=== PATIENT | female | born 1985 | race Caucasian/White ===

== ENCOUNTER 2017-01-03 13:29 | Outpatient (CLI) | payer MEDICAID | END 2017-01-03 13:30 | disposition home or self-care (01) | DX: Z20.2 Contact with and (suspected) exposure to infections with a predominantly sexual mode of transmission (principal) ==

== ENCOUNTER 2017-05-17 14:43 | Emergency (ER) | payer MEDICAID ==
[2017-05-17 14:50] VITALS: BP 108/65
--- NOTE | 2017-05-17 15:37 | ED Physician Documentation ---
History of Present Illness - Stated complaint Stated Complaint: FACE ABRASIONS - Chief complaint Chief Complaint: Heent - Additonal information Additional information: hx from pt 31 y/o f not rash to face otherwise well Review of Systems Constitutional: denies: Fever : denies: Now EGA Skin: reports: Rash PD PAST MEDICAL HISTORY - Past Medical History Respiratory: Asthma Psych: Panic attacks - Past Surgical History Past Surgical History: Yes General: Colonoscopy HEENT: Tonsil/Adenoidectomy - Present Medications Home Medications: Ambulatory Orders Medication Instructions Recorded Confirmed Cephalexin [Keflex] 500 mg PO Q6H #28 capsule 05/17/17 Mupirocin Calcium [Bactroban] 1 applic TP BID #30 cream..g. 05/17/17 - Allergies Allergies/Adverse Reactions: Allergies Allergy/AdvReac Type Severity Reaction Status Date / Time No Known Drug Allergies Allergy Verified 02/20/14 21:51 - Social History Does the pt smoke?: Yes Smoking Status: Former smoker Does the pt drink ETOH?: No Does the pt have substance abuse?: No - Immunizations Immunizations are current?: Yes PD ED PE NORMAL - Vitals Vital signs reviewed: Yes - Cardiac Cardiac: RRR - Respiratory Respiratory: No respiratory distress, Clear bilaterally - Derm Derm: Other (impetigo to face (nose mouth and l cheek) - classic deep red with clear yellow crusting and no surrounding erythema) Results - Vitals Vitals: Vital Signs - 24 hr 05/17/17 14:47 Temperature 36.4 C L Heart Rate 97 Respiratory 17 Rate Blood Pressure 108/65 O2 Saturation 100 Oxygen O2 Source Room air Departure - Departure Disposition: Home, Self Care Clinical Impression: Impetigo Condition: Good Instructions: Impetigo Prescriptions: Mupirocin Calcium [Bactroban] 1 applic TP BID #30 cream..g. Cephalexin [Keflex] 500 mg PO Q6H #28 capsule Comments: The topical antibiotic should clear the rash. Only take the oral antibiotic if not better after 3 days of the topical medication Return to the ER if much worse or new symptoms develop
== END 2017-05-17 15:49 | disposition home or self-care (01) ==
LOC: ED 14:43
DX: L01.00 Impetigo, unspecified (principal); Z87.891 Personal history of nicotine dependence
CPT/HCPCS: 99282; 99283